=== PATIENT | male | born 1980 | race Hispanic/Latino ===

== ENCOUNTER 2020-11-20 12:59 | Emergency (ER) | payer OTHER ==
[2020-11-20] MEDS ORDERED: CYCLOBENZAPRINE HCL 10 MG TABLET ONE (13:19)
[2020-11-20] MEDS ORDERED: KETOROLAC TROMETHAMINE 60 MG/2 ML VIAL ONE (13:19)
== END 2020-11-20 14:40 | disposition home or self-care (01) ==
LOC: EDH 12:59
DX: M54.41 Lumbago with sciatica, right side (principal)
CPT/HCPCS: 72100; 96372; 99283; J1885

== ENCOUNTER 2024-07-05 14:32 | Emergency (ER) | payer BC ==
[~2024-07-05] VITALS: Ht 180.3 cm; Wt 83.0 kg
[2024-07-05 14:36] VITALS: BP 135/85; PULSE 76; RESP 16
[2024-07-05] MEDS ORDERED: IBUP-2077 PO (15:50)
[2024-07-05] MEDS: KETOROLAC 15MG/ML VIAL (15MG/ML) IM STA (16:10)
== END 2024-07-05 16:29 | disposition home or self-care (01) ==
LOC: EDH 14:32
DX: I80.03 Phlebitis and thrombophlebitis of superficial vessels of lower extremities, bilateral (principal)
CPT/HCPCS: 99284; 96372; J1885